=== PATIENT | female | born 1995 | race Caucasian/White ===

== ENCOUNTER 2019-04-03 22:56 | Emergency (ER) | payer OTHER ==
[~2019-04-03] VITALS: Ht 149.9 cm; Wt 57.6 kg
[2019-04-03 23:18] LABS: ABSOLUTE EOSINOPHILS 0.1 thou/uL (0.0-0.7); ABSOLUTE LYMPHOCYTES 2.1 thou/uL (0.8-5.3); ABSOLUTE MONOCYTES 0.4 thou/uL (0.0-1.2); ABSOLUTE NEUTROPHILS 7.2 thou/uL (1.6-8.1); BASOPHILS 0.4 %; EOSINOPHILS 0.7 %; HEMATOCRIT 37.4 % (37.0-47.0); HEMOGLOBIN 12.6 gm/dL (12.0-15.0); LYMPHOCYTES 21.5 %; MCH 28.6 pg (26.0-34.0); MCHC 33.8 g/dL (28.0-37.0); MCV 84.7 fL (80.0-100.0); MONOCYTES 4.4 %; MPV 8.6 fl. (7.2-11.1); NUCLEATED RBCS 0 /100WBC; PLATELET COUNT* 257 thou/uL (150-400); RBC 4.42 mil/uL (4.20-5.00); RDW-CV 16.4 % (10.5-14.5); WBC 9.8 thou/uL (4.0-11.0)
[2019-04-03] MEDS ORDERED: CELEXA 10 MG TA10 M1 PO (23:19)
[2019-04-03] MEDS ORDERED: TRAZODONE 150150 M1 PO (23:20)
[2019-04-03] MEDS ORDERED: DESYREL150 MG PO (23:20)
[2019-04-03 23:27] LABS: CALCIUM 9.1 mg/dL (8.5-10.1); CREATININE 0.9 mg/dL (0.6-1.3); POTASSIUM 3.7 mmol/L (3.5-5.1)
[2019-04-03 23:33] LABS: TOTAL BILIRUBIN 0.2 mg/dL (<0.1-1.0)
[2019-04-03] MEDS ORDERED: DULCOLAX STOOL100 M1 PO (23:35)
[2019-04-03] MEDS ORDERED: ATOMOXETINE HCL60 MG PO (23:35)
[2019-04-03] MEDS ORDERED: SUBOXONE 8 MG-1 EAC3 SUBLING (23:37)
[2019-04-03 23:48] LABS: ALCOHOL 217 mg/dL (<10); SALICYLATE 3.2 mg/dL (2.8-20.0)
[2019-04-03 23:50] LABS: ACETAMINOPHEN < 2 ug/mL (10-30)
[2019-04-04 05:32] LABS: URINE BILIRUBIN NEGATIVE (Negative); URINE BLOOD NEGATIVE (Negative); URINE CLARITY CLEAR; URINE COLOR YELLOW; URINE GLUCOSE-RANDOM NEGATIVE (Negative); URINE KETONES NEGATIVE (Negative); URINE LEUKOCYTES-REFLEX NEGATIVE (Negative); URINE NITRITE-REFLEX NEGATIVE (Negative); URINE PROTEIN NEGATIVE (Negative); URINE SPECIFIC GRAVITY >= 1.030 (1.005-1.030); URINE UROBILINOGEN 0.2 E.U./dl (0.2-1.0)
[2019-04-04 05:41] LABS: AMP/METHAMP Negative (Negative); BARBITURATES Negative (Negative); BENZODIAZEPINES Negative (Negative); COCAINE Negative (Negative); METHADONE Negative (Negative); OPIATES Negative (Negative); PCP Negative (Negative); THC POSITIVE (Negative)
[2019-04-05 09:53] VITALS: BP 112/89
== END 2019-04-05 09:55 ==
LOC: M.ERS 22:56
PROVIDERS: Emergency Medicine
DX: R45.851 Suicidal ideations (principal); F10.129 Alcohol abuse with intoxication, unspecified; F17.200 Nicotine dependence, unspecified, uncomplicated; F32.9 Major depressive disorder, single episode, unspecified